=== PATIENT | female | born 1950 | race Two or more races ===

== ENCOUNTER 2024-05-05 09:30 | Inpatient (IN) | payer OTHER ==
[~2024-05-05] VITALS: Ht 157.5 cm; Wt 86.2 kg
[2024-05-05] MEDS ORDERED: PEPCID40 MG PO (10:50)
[2024-05-05] MEDS ORDERED: NEXIUM 24HR20 MG PO (10:50)
[2024-05-05 11:27] LABS: HEMATOCRIT 44.8 % (36.0-45.00); HEMOGLOBIN 15.3 g/dL (12.0-15.00); MEAN CELL VOLUME 88.3 fL (80.00-100.00); MEAN CORPUSCULAR HEMOGLOBIN 30.1 pg (27.00-32.0); MEAN CORPUSCULAR HGB CONC 34.1 g/dl (32.0-36.0); PLATELET COUNT 218 K/uL (150-450); RED BLOOD COUNT 5.07 M/uL (4.00-6.00); RED CELL DISTRIBUTION WIDTH 14.9 % (11.5-14.5)
[2024-05-05 11:42] VITALS: BP 145/85
[2024-05-05 11:42] LABS: INR 0.97; PARTIAL THROMBOPLASTIN TIME 27.8 SECONDS (22.0-34.0); PROTHROMBIN TIME 10.6 SECONDS (9.0-11.5)
[2024-05-05 12:12] LABS: ALBUMIN 3.8 gm/dL (3.4-5.0); BILIRUBIN TOTAL 0.36 mg/dL (0.3-1.2); CALCIUM 9.4 mg/dL (8.5-10.1); CREATININE SERUM 1.15 mg/dL (0.55-1.02); GFR 46.38; POTASSIUM 4.61 mEq/L (3.5-5.1); TOTAL PROTEIN 7.8 gm/dL (6.4-8.2)
[2024-05-05 13:13] LABS: RH POSITIVE
[2024-05-05 14:05] LABS: PH,URINE 5.5 (5.0-8.0); URINE APPEARANCE Clear; URINE BILIRRUBIN Negative (NEGATIVE); URINE BLOOD Negative; URINE COLOR Yellow; URINE GLUCOSE Negative (NEGATIVE); URINE KETONE Trace (NEGATIVE); URINE LEUKOCYTE Trace; URINE NITRATE Negative; URINE PROTEIN 30 (NEGATIVE)
[2024-05-05 14:09] LABS: URINE BACTERIA 468.6 uL (0.0-1933); URINE EPITHELIAL CELLS 29.4 uL (0.0-38.8); URINE RBC 6.1 uL (0.0-20.8); URINE WBC 13.4 uL (0.0-23.2)
[2024-05-05 14:18] LABS: CHOL HDL RATIO 3.4 (0-5.0)
[2024-05-05 14:51] LABS: URINE CAST 0.91 uL (0.0-1.40)
[2024-05-11] MEDS ORDERED: ESOMEPRAZOLE MA40 MG (08:05)
[2024-05-11] MEDS ORDERED: FAMOTIDINE40 MG (08:09)
[2024-05-11] MEDS ORDERED: MORPHINE SULFATE 4 MG/ML VIAL IV ONE (09:30)
[2024-05-11] MEDS ORDERED: TRANEXAMIC ACID 100MG/1ML (1000MG) AMPUL IV ONE ×2 (09:30)
[2024-05-11] MEDS ORDERED: ISOPROPYL ALCOHOL 30 ML OUNCE TOP ONE (09:30)
[2024-05-11] MEDS ORDERED: BUPIVACAINE HCL 30 ML VIAL IJ ONE (09:30)
[2024-05-11] MEDS ORDERED: POVIDONE-IODINE 0.75 OZ PACKET TOP ONE (09:30)
[2024-05-11] MEDS ORDERED: VANCOMYCIN HCL 1,000 MG VIAL IV ONE (09:30)
[2024-05-11] MEDS ORDERED: LIDOCAINE HCL 1%/EPINEPHRINE 20ML VIAL IJ ONE (09:30)
[2024-05-11] MEDS ORDERED: KETOROLAC TROMETHAMINE 60 MG VIAL IM ONE (09:30)
[2024-05-11] MEDS ORDERED: SODIUM CHLORIDE 0.45 % 1,000 ML IV SCH (10:30)
[2024-05-11] MEDS ORDERED: ONDANSETRON HCL 2 MG/ML VIAL IV PRN (10:30)
[2024-05-11] MEDS ORDERED: OxyCODONE HCL 5 MG TABLET (ROXICODONE) PO PRN (10:30)
[2024-05-11] MEDS ORDERED: MORPHINE SULFATE 4 MG/ML CARTRIDGE IV PRN (10:30)
[2024-05-11] MEDS ORDERED: ACETAMINOPHEN 500 MG GEL..CAP PO SCH (12:00)
[2024-05-11 13:44] VITALS: BP 146/67; O2SAT 96
[2024-05-11 16:41] VITALS: BP 108/69; O2SAT 95
[2024-05-11] MEDS ORDERED: GABAPENTIN 300 MG CAPSULE PO SCH (17:00)
[2024-05-11] MEDS ORDERED: VANCOMYCIN HCL 1,000 MG in 0.9 % SODIUM CHLORIDE 250 ML IV SCH (21:00)
[2024-05-12 00:30] VITALS: BP 139/60; O2SAT 95
[2024-05-12 06:48] LABS: HEMATOCRIT 38.7 % (36.0-45.00); HEMOGLOBIN 13.1 g/dL (12.0-15.00); MEAN CELL VOLUME 87.9 fL (80.00-100.00); MEAN CORPUSCULAR HEMOGLOBIN 29.8 pg (27.00-32.0); MEAN CORPUSCULAR HGB CONC 33.9 g/dl (32.0-36.0); PLATELET COUNT 157 K/uL (150-450); RED BLOOD COUNT 4.41 M/uL (4.00-6.00); RED CELL DISTRIBUTION WIDTH 15.2 % (11.5-14.5)
[2024-05-12] MEDS ORDERED: CIPRO500 MG PO (07:28)
[2024-05-12] MEDS ORDERED: PERCOCET 5-3251 EACH PO (07:28)
[2024-05-12] MEDS ORDERED: ELIQUIS2.5 MG PO (07:28)
[2024-05-12 08:30] VITALS: BP 163/71; O2SAT 92
[2024-05-12] MEDS ORDERED: APIXABAN 2.5 MG TABLET PO SCH (09:00)
[2024-05-12] MEDS ORDERED: SENNOSIDES 1 TAB TABLET PO SCH (09:00)
[2024-05-12] MEDS ORDERED: Cyanocobalamin/Mecobalamin 1 TAB.SL SL SCH (12:52)
[2024-05-12] MEDS ORDERED: VITAMIN B COMPLEX 1 EACH PO SCH (17:00)
[2024-05-12] MEDS ORDERED: ENALAPRILAT DIHYDRATE 1.25 MG/ML VIAL IV PRN (17:00)
[2024-05-12 17:20] VITALS: BP 177/98; O2SAT 96
[2024-05-12] MEDS ORDERED: FAMOtidine 20 MG TABLET PO SCH (21:00)
[2024-05-13 00:23] VITALS: BP 163/80; O2SAT 95
[2024-05-13 07:23] LABS: HEMATOCRIT 39.5 % (36.0-45.00); HEMOGLOBIN 13.3 g/dL (12.0-15.00); MEAN CELL VOLUME 87.2 fL (80.00-100.00); MEAN CORPUSCULAR HEMOGLOBIN 29.4 pg (27.00-32.0); MEAN CORPUSCULAR HGB CONC 33.7 g/dl (32.0-36.0); PLATELET COUNT 193 K/uL (150-450); RED BLOOD COUNT 4.53 M/uL (4.00-6.00); RED CELL DISTRIBUTION WIDTH 15.1 % (11.5-14.5)
[2024-05-13] MEDS ORDERED: PANTOPRAZOLE SODIUM 40 MG TABLET.DR PO SCH (07:30)
[2024-05-13 08:00] VITALS: BP 135/65; O2SAT 94
[2024-05-13] MEDS ORDERED: IRON FUM,PS/FOLIC ACID/VITC/B3 1 CAP CAPSULE PO SCH (09:00)
[2024-05-13] MEDS ORDERED: OxyCODONE HCL/APAP UD (PERCOCET) PO ONE (13:00)
[2024-05-13 18:12] VITALS: BP 147/82; O2SAT 96
== END 2024-05-13 22:18 | DRG 470 ==
LOC: O/R 05-11 05:30 → SURG 05-11 05:30 → SURH 05-11 09:30 → SURG 05-11 12:56 → SURH 05-11 21:30 → SURG 05-13 22:18
PROVIDERS: ADMIT Orthopaedic Surgery; ATTEND Orthopaedic Surgery
PROC: 0MNN0ZZ Release Right Knee Bursa and Ligament, Open Approach (ICD-10-PCS; 2024-05-11)
PROC: 0SUD07Z Supplement Left Knee Joint with Autologous Tissue Substitute, Open Approach (ICD-10-PCS; 2024-05-11)
PROC: 0SRD0JZ Replacement of Left Knee Joint with Synthetic Substitute, Open Approach (ICD-10-PCS; principal; 2024-05-11 21:30)
DX: M17.12 Unilateral primary osteoarthritis, left knee (principal); M85.462 Solitary bone cyst, left tibia and fibula; S83.012A Lateral subluxation of left patella, initial encounter

== ENCOUNTER 2025-03-19 13:05 | Inpatient (IN) | payer OTHER ==
[~2025-03-19] VITALS: Ht 160 cm; Wt 83.5 kg
[~2025-03-19 13:05] MED LIST: CIPRO500 MG PO; ELIQUIS2.5 MG PO; ESOMEPRAZOLE MA40 MG; FAMOTIDINE40 MG; NEXIUM 24HR20 MG PO; PEPCID40 MG PO; PERCOCET 5-3251 EACH PO
[2025-03-19] MEDS ORDERED: AMLODIPINE BESYL5 MG PO (13:30)
[2025-03-19] MEDS ORDERED: FAMOTIDINE/PF 20 MG/2 ML VIAL IV PUSH ONE (14:00)
[2025-03-19] MEDS ORDERED: HYOSCYAMINE SULFATE 0.125 MG TAB.SUBL SL ONE (14:00)
[2025-03-19] MEDS ORDERED: FAMOTIDINE/PF 20 MG/2 ML VIAL ONE (14:05)
[2025-03-19] MEDS ORDERED: HYOSCYAMINE SULFATE 0.125 MG TAB.SUBL ONE (14:05)
[2025-03-19] MEDS ORDERED: 0.9 % SODIUM CHLORIDE 1,000 ML IV ONE (14:15)
[2025-03-19 14:30] LABS: BASO % 0.4 % (0.1-1.2); EOS # 0.04 (0.04-0.54); EOS % 0.4 % (0.7-7.0); LYMPH # 0.88 (1.18-3.74); LYMPH % 9.5 % (19.3-53.1); MEAN PLATELET VOLUME 12.20 fl (9.4-12.4); MONO # 0.97 (0.24-0.82); MONO % 10.4 % (4.7-12.5); NEUT # 7.33 (1.56-6.13); NEUT % 78.8 % (34.0-71.1); RED CELL DISTRIBUTION WIDTH 14.2 % (11.6-14.4)
[2025-03-19 15:21] LABS: ALT/SGPT 187.0 U/L (12-78); AST/SGOT 92.0 U/L (15-37); BILIRUBIN TOTAL 0.79 mg/dL (0.3-1.2); BUN CREA RATIO 13.0 (7.0-25.0); CREATININE SERUM 1.74 mg/dL (0.55-1.02); GFR 28.76; GLOBULINA 4.2 G/DL (2.4-3.5); GLUCOSE FASTING 119.0 mg/dL (65-100); OSMOLALITY SERUM 277.0 MOSM/KG (275-295)
[2025-03-19] MEDS ORDERED: ACETAMINOPHEN 500 MG GEL..CAP PO PRN (20:00)
[2025-03-19] MEDS ORDERED: ONDANSETRON HCL 4 MG in 0.9 % SODIUM CHLORIDE 50 ML IV PRN (20:00)
[2025-03-19] MEDS ORDERED: 0.9 % SODIUM CHLORIDE 1,000 ML IV SCH (20:00)
[2025-03-19] MEDS ORDERED: CIPROFLOXACIN IN 5 % DEXTROSE 200 ML IV SCH (21:00)
[2025-03-20 01:12] VITALS: BP 135/72; O2SAT 95
[2025-03-20 05:58] LABS: URINE APPEARANCE Clear; URINE BILIRRUBIN Negative (NEGATIVE); URINE BLOOD Negative; URINE COLOR Yellow; URINE GLUCOSE Negative (NEGATIVE); URINE KETONE 15 (NEGATIVE); URINE LEUKOCYTE Negative; URINE NITRATE Negative; URINE PROTEIN 30 (NEGATIVE); URINE UROBILINOGEN 0.2 E.U./dl
[2025-03-20 06:41] LABS: URINE CRYSTALS FEW /HPF; URINE EPITHELIAL CELLS 0-4 /HPF; URINE RBC 0-3 /HPF; URINE WBC 0-2 /hpf
[2025-03-20 06:42] LABS: URINE BACTERIA MODERATE
[2025-03-20] MEDS ORDERED: hydrALAZINE HCL 20 MG VIAL IV PRN (07:00)
[2025-03-20 08:17] LABS: INR 1.03
[2025-03-20 08:27] VITALS: BP 107/51; O2SAT 96
[2025-03-20] MEDS ORDERED: ENOXAPARIN SODIUM 40 MG/0.4 ML SYRINGE SUBCUTANEO SCH (09:00)
[2025-03-20] MEDS ORDERED: AMLODIPINE BESYLATE 5 MG TABLET PO SCH (09:00)
[2025-03-20] MEDS ORDERED: FAMOTIDINE/PF 20 MG in 0.9 % SODIUM CHLORIDE 8 ML IV PUSH SCH (09:00)
[2025-03-20 16:59] VITALS: BP 132/61; O2SAT 98
[2025-03-21 01:27] VITALS: BP 138/73; O2SAT 97
[2025-03-21 06:26] LABS: BASO % 1.0 % (0.1-1.2); EOS # 0.24 (0.04-0.54); EOS % 3.9 % (0.7-7.0); LYMPH # 1.39 (1.18-3.74); LYMPH % 22.6 % (19.3-53.1); MEAN PLATELET VOLUME 12.20 fl (9.4-12.4); MONO # 0.79 (0.24-0.82); NEUT # 3.65 (1.56-6.13); NEUT % 59.2 % (34.0-71.1); RED CELL DISTRIBUTION WIDTH 13.7 % (11.6-14.4)
[2025-03-21 07:08] LABS: ALT/SGPT 88.0 U/L (12-78); AST/SGOT 31.0 U/L (15-37); BILIRUBIN TOTAL 0.4 mg/dL (0.3-1.2); BUN CREA RATIO 16.0 (7.0-25.0); CREATININE SERUM 0.94 mg/dL (0.55-1.02); GFR 58.53; GLOBULINA 3.3 G/DL (2.4-3.5); GLUCOSE FASTING 75.0 mg/dL (65-100); OSMOLALITY SERUM 286.0 MOSM/KG (275-295)
[2025-03-21 07:25] LABS: MONO % 12.8 % (4.7-12.5)
[2025-03-21 08:59] VITALS: BP 152/74; O2SAT 97
[2025-03-21 17:33] VITALS: BP 153/72; O2SAT 96
[2025-03-21 18:37] VITALS: BP 130/60
[2025-03-21] MEDS ORDERED: SODIUM CHLORIDE 0.45 % 1,000 ML IV SCH (19:15)
[2025-03-21] MEDS ORDERED: PANTOPRAZOLE SODIUM 40 MG/VIAL VIAL IV STA (19:52)
[2025-03-21 20:52] VITALS: BP 118/72
[2025-03-21] MEDS ORDERED: NITROGLYCERIN IN 5 % DEXTROSE 250 ML IV SCH (21:15)
[2025-03-21] MEDS ORDERED: ENOXAPARIN SODIUM 80 MG/0.8 ML SYRINGE SUBCUTANEO STA (21:15)
[2025-03-22 01:16] VITALS: BP 128/67; O2SAT 97
[2025-03-22] MEDS ORDERED: PANTOPRAZOLE SODIUM 40 MG/VIAL VIAL IV SCH (09:00)
[2025-03-22] MEDS ORDERED: ACYCLOVIR 400 MG TABLET PO SCH (09:00)
[2025-03-22] MEDS ORDERED: MUPIROCIN 15 GM OINT..GM TUBE TOP SCH (09:00)
[2025-03-22] MEDS ORDERED: ENOXAPARIN SODIUM 80 MG/0.8 ML SYRINGE SUBCUTANEO SCH (09:00)
[2025-03-22 09:28] VITALS: BP 140/66; O2SAT 99
[2025-03-22 17:59] VITALS: BP 142/69
[2025-03-23 01:38] VITALS: BP 149/70; O2SAT 95
[2025-03-23] MEDS ORDERED: LACTOBACILLUS ACIDOPHILUS 1 CAP CAP PO SCH (09:00)
[2025-03-23 10:08] VITALS: BP 119/72; O2SAT 96
[2025-03-23] MEDS ORDERED: AMINO ACIDS/PROTEIN HYDROLYS 30 ML BLIST.PACK PO SCH (17:00)
[2025-03-23 18:20] VITALS: BP 146/69
[2025-03-23] MEDS ORDERED: FAMOTIDINE/PF 20 MG/2 ML VIAL IV SCH (21:00)
== END 2025-03-23 18:49 | disposition home or self-care (01) | DRG 392 ==
LOC: ER 13:05 → MEDI 20:33
PROVIDERS: Emergency Medicine; General Practice; Internal Medicine Nephrology; ADMIT Internal Medicine; ATTEND Internal Medicine
PROC: BW21ZZZ Computerized Tomography (CT Scan) of Abdomen and Pelvis (ICD-10-PCS; 2025-03-19)
PROC: B246ZZZ Ultrasonography of Right and Left Heart (ICD-10-PCS; principal; 2025-03-21)
PROC: 4A12X4Z Monitoring of Cardiac Electrical Activity, External Approach (ICD-10-PCS; 2025-03-21)
DX: A09 Infectious gastroenteritis and colitis, unspecified (principal); N17.8 Other acute kidney failure; K52.89 Other specified noninfective gastroenteritis and colitis; E86.0 Dehydration; R79.89 Other specified abnormal findings of blood chemistry